=== PATIENT | female | born 1965 | race Caucasian/White ===

== ENCOUNTER 2024-04-05 10:17 | Observation (INO) ==
--- NOTE | 2024-03-07 16:05 | PAT Medication Instructions ---
Medication Instructions Date of Service March 07, 2024 Home Medications Medication Instructions Recorded Mitesh Clayton #1 ea 01/28/24 cholecalciferol (vitamin D3) 25 mcg (1,000 unit) tablet (Vitamin D3) 50 mcg PO QAM cyanocobalamin (vitamin B-12) 100 mcg/mL injection solution 100 mcg QAM duloxetine 20 mg capsule,delayed release 20 mg PO BID pediatric multivitamin (Flintstones Multivitamin chewable tablet) 2 tab PO QAM tramadol 50 mg tablet 50 mg PO HS PRN DO NOT take the morning of surgery cholecalciferol (vitamin D3) 25 mcg (1,000 unit) tablet (Vitamin D3) 50 mcg PO QAM cyanocobalamin (vitamin B-12) 100 mcg/mL injection solution 100 mcg QAM pediatric multivitamin (Flintstones Multivitamin chewable tablet) 2 tab PO QAM Take morning of surgery With a small sip of water, OTHERWISE NOTHING TO EAT OR DRINK AFTER MIDNIGHT: duloxetine 20 mg capsule,delayed release 20 mg PO BID Take evening before surgery duloxetine 20 mg capsule,delayed release 20 mg PO BID tramadol 50 mg tablet 50 mg PO HS PRN(if needed) Other Notes If you have any questions please call us at [phone] or [phone] or [phone] or [phone]
--- NOTE | 2024-03-15 08:58 | Anesthesiology Consultation ---
Date of Service March 15, 2024 Assessment & Plan (1) Encounter for pre-operative examination: - Infectious disease screening: Per assessment on 03/15/24- No known recent infectious disease contacts or current infectious disease symptoms. - Outpatient joint assessment: Pt currently scheduled for inpatient pathway. If surgeon requests review for outpatient joint pathway, patient is acceptable candidate for outpatient joint program from anesthesia standpoint pending surgeon's office assessment that patient is motivated, has good support and completes [facility] Program preop requirements. - Anesthesia hx: Severe post-op pain after tubal ligation done with neuraxial anesthesia Chart Review Chart Review: Acceptable Risk for Surgery and Patient seen in Pre Admission Testing Teaching & Discussion Pre-Anesthesia Teaching/Discussion Notes: Instructed NPO after midnight before surgery,except medications with 15 cc of water. Medication instructions provided according to the PAT guidelines. History Surgery Operation Date: 04/05/24 07:00 Proposed Procedures p Right Total Knee Arthroplasty - Aly Mcgrath MD Height/Weight Height: 5 ft 5 in Weight: 95.3 kg Allergies Allergy/AdvReac Type Severity Reaction Status Date / Time No Known Allergies Allergy Verified 03/02/24 15:06 Medications Home Medications Medication Instructions Recorded Confirmed Last Taken Wheeled Walker #1 ea 01/28/24 01/28/24 Unknown cholecalciferol (vitamin D3) 25 50 mcg PO QAM 03/02/24 03/02/24 Unknown mcg (1,000 unit) tablet (Vitamin D3) cyanocobalamin (vitamin B-12) 100 100 mcg QAM 03/02/24 03/02/24 Unknown mcg/mL injection solution duloxetine 20 mg capsule,delayed 20 mg PO BID 03/02/24 03/02/24 Unknown release pediatric multivitamin 2 tab PO QAM 03/02/24 03/02/24 Unknown (Flintstones Multivitamin chewable tablet) tramadol 50 mg tablet 50 mg PO HS PRN prn 03/02/24 03/02/24 Unknown Metamucil Gummy 1 gummy PO DAILY 03/15/24 Unknown Past Medical History Medical History Anxiety Chronic uveitis of left eye Follows with Dr Corbin/[facility] History of blood clots (2016) Superficial wrist after IV placement, no issues since Mother with Factor V, patient never tested Hypercholesteremia no meds Osteoarthritis Exercise / Class Metabolic Activity II 4-5 Yardwork/Stairs/Walk up hill (one FS: No CP, no SOB) Past Surgical History Surgical History History of cholecystectomy History of gastric surgery (2018) gastric sleeve History of hysterectomy History of shoulder surgery left x 5 Past Anesthesia History No Family Hx of Anesthesia Complications and Other (Severe post-op pain after tubal ligation done with neuraxial anesthesia) History of PONV No Hx of PONV and Hx of Motion Sickness (Occasional) Social History Smoking Status: Never smoker Do You Dip or Chew Tobacco: No Hx Alcohol Use: Yes alcohol intake frequency: holidays/special occasions only Hx Substance Use: No substance use type: does not use Review of Systems Occasional palpitations (improved with duloxetine addition). Patient denies chest pain, shortness of breath, dyspnea on exertion, fever, chills, cough, wheezing. Physical Exam Vital Signs BP 113/76 P 59 TEMP 97.6 SP02 97%RA RESP 16 Physical Full cervical extension range of motion. Full TMJ range of motion. TMD 3.5 finger breaths Mallampati Score I Dentition: left lower side missing, + crown (right lower side) Lungs: clear throughout to auscultation Cardiac: regular rate and rhythm, no murmurs noted Spine: normal Carotid arteries: negative bruit Extremities: non-pitting LE edema Lab Results Anesthesia Preop Results Results Anesthesia Widget: WBC 5.56 K/ul (4.8-10.8) 03/15/24 Hgb 13.5 g/dl (12.0-16.0) 03/15/24 Hct 40.0 % (37.0-47.0) 03/15/24 Plt 245 K/uL (130-400) 03/15/24 Na 139 mmol/L (136-145) 03/15/24 K 3.8 mmol/L (3.5-5.1) 03/15/24 Cl 104 mmol/L (98-107) 03/15/24 CO2 30 mmol/L (21-32) 03/15/24 BUN 16 mg/dl (6-23) 03/15/24 Creat 0.72 mg/dl (0.6-1.2) 03/15/24 Glucose Level 86 mg/dl (70-99(Fasting)) 03/15/24 PT 10.3 Seconds (9.0-12.0) 03/15/24 PTT 26 Seconds (21-31) 03/15/24 INR 0.9 (0.9-1.1) 03/15/24 Blood Type O Negative 03/15/24 Antibody Screen NEGATIVE 03/15/24 Testing Electrocardiogram Date: 03/15/24 SB at 56bpm. LAD. Low voltage QRS. Chest X-Ray Date: 03/15/24 FINDINGS: Heart size and pulmonary vasculature are normal. No pleural effusion or consolidation. IMPRESSION: No acute findings.
--- NOTE | 2024-03-31 09:45 | History & Physical Report ---
Date of Service March 31, 2024 Assessment & Plan (1) Bilateral primary osteoarthritis of knee: 59-year-old female with advanced bilateral knee arthritis right side greater than left. She has failed conservative treatment. She like to proceed with surgical management. Unfortunately she cannot take NSAIDs due to some GI issues. Plan: Sebastian take her to the operating room and do a right knee replacement for the Juliánn this procedure explained and she understands the informed consents obtained. We will do the right knee first and if this does well she will likely consider a left knee replacement in the future. Will use aspirin for DVT prophylaxis. She is planned to be discharged to home postop day 1 with home health. (2) History of high cholesterol: (3) Anxiety: History of Present Illness Chief Complaint: . Bilateral knee pain and discomfort right side greater than the left. Primary Care Provider: NO PCP . The patient is a 59-year-old female who now presents for surgical treatment of her knees. She has a fairly long history of gradual progressing increased bilateral knee pain discomfort. She been through extensive conservative tr eatment which is included injections which did become less successful over time. She used to take a lot of anti-inflammatories but developed some GI issues and cannot take them anymore. The right knee bothers him more than the left. The more she is up and onto more it hurts. She limps more as the day goes on. She is ready to have her knees fixed. Allergies Allergy/AdvReac Type Severity Reaction Status Date / Time No Known Allergies Allergy Verified 03/02/24 15:06 Home Medications Medication Instructions Recorded Confirmed Type Wheeled Walker #1 ea 01/28/24 01/28/24 Rx cholecalciferol (vitamin D3) 25 50 mcg PO QAM 03/02/24 03/02/24 History mcg (1,000 unit) tablet (Vitamin D3) cyanocobalamin (vitamin B-12) 100 100 mcg QAM 03/02/24 03/02/24 History mcg/mL injection solution duloxetine 20 mg capsule,delayed 20 mg PO BID 03/02/24 03/02/24 History release pediatric multivitamin 2 tab PO QAM 03/02/24 03/02/24 History (Flintstones Multivitamin chewable tablet) tramadol 50 mg tablet 50 mg PO HS PRN prn 03/02/24 03/02/24 History Metamucil Gummy 1 gummy PO DAILY 03/15/24 History Past Med/Surg History Problem List Encounter for pre-operative examination Bilateral primary osteoarthritis of knee History of high cholesterol Medical History History of blood clots (2016) Superficial wrist after IV placement, no issues since Mother with Factor V, patient never tested Osteoarthritis Chronic uveitis of left eye Follows with Dr Corbin/[facility] Anxiety Hypercholesteremia no meds Surgical History History of shoulder surgery left x 5 History of hysterectomy History of gastric surgery (2018) gastric sleeve History of cholecystectomy Social History Smoking Status: Never smoker Second Hand Exposure: No; Do You Dip or Chew Tobacco: No; Tobacco Cessation Education Requested by Patient: No Hx Alcohol Use: Yes Hx Substance Use: No Preferred Language: Kuwaiti Director New Product Required: No Beliefs That Will Affect Care: None Current Living Situation: Spouse Other Information That Helps Us Care for You: No Feels Safe at Home: Yes Safety Concerns: Feels Safe At This Time Assistive Devices: Glasses Review of Systems All systems reviewed & are unremarkable except as noted in HPI & below. Physical Exam . Physical examination reveals a pleasant middle-aged female but looks in pretty good health. Examination of both [id number] patient ambulates with a bit of waddling gait. She got varus alignment to both knees. Tender with medial joint line bilaterally. Range of motion of the right is 5-1 20 and the left is about 5-1 25. No particular pain with hip motion. No instability either knee. Constitutional WD/WN, vitals as above Respiratory normal respiratory effort, lungs clear to auscultation Cardiovascular RRR, no murmur, no edema Gastrointestinal (Abdomen) normal bowel sounds, soft, nontender, no hepatosplenomegaly Results & Data Results & Data Laboratory Results . Diagnostic Findings . X-rays of the knees were reviewed. Shows advanced bilateral knee DJD. She got near complete loss of the medial joint space. The right knee is a bit worse than the left. PG Care Time/CCT Total # of Minutes Spent Total Time Spent with Patient: Total time spent is greater than 50% in coordination of care (as documented) at patient's floor/unit and/or counseling patient: Coding Level of Care Code None Diagnoses Bilateral primary osteoarthritis of knee M17.0 History of high cholesterol Z86.39 Anxiety F41.9
[~2024-04-05 10:17] MED LIST: ROPIVACAINE 0.5% 5 MG/ML 30 ML VIAL ONE; TRANEXAMIC ACID 1,000 MG **IV Pre-op IV SCH
--- NOTE | 2024-04-05 10:24 | History & Physical Bridge Note ---
Date of Service April 05, 2024 History & Physical Bridge Note I have examined the patient, reviewed the History & Physical and in the interval since the performance of the History & Physical I have noted the following changes of clinical significance: no changes noted
[2024-04-05] MEDS: ACETAMINOPHEN 500 MG TAB PO SCH ×2 (10:47→15:27)
[2024-04-05] MEDS: FAMOTIDINE 20 MG TAB PO SCH (10:47)
[2024-04-05] MEDS: CeleBREX 200 MG CAP PO SCH (10:47)
[2024-04-05] MEDS: METOCLOPRAMIDE HCL 10 MG TABLET PO SCH (10:48)
[2024-04-05] MEDS: dexAMETHasone**PF** 10 MG/ML VIAL IV SCH (10:48)
[2024-04-05] MEDS: LR 60ML/HR IV SCH (10:48)
[2024-04-05] MEDS: LR 500ML BOLUS, THEN 15ML/HR IV SCH (10:49)
[2024-04-05] MEDS ORDERED: MIDAZOLAM HCL 1 MG/ML 2ML VIAL ONE (11:00)
[2024-04-05] MEDS ORDERED: fentaNYL citrate PF 100 MCG/2 ML VIAL ONE (11:01)
[2024-04-05] MEDS ORDERED: LIDOCAINE 2% 2 ML VIAL/AMP(20MG/ML) INFIL ONE (11:31)
[2024-04-05] MEDS ORDERED: ONDANSETRON INJ 2 MG/ML 2 ML VIAL ONE (11:32)
[2024-04-05] MEDS ORDERED: PROPOFOL IV EMULSION 10 MG/ML 20 ML VIAL IV ONE (11:32)
[2024-04-05] MEDS ORDERED: HYDROmorphone INJ 1 MG/ML SYRINGE IV PRN (11:44)
[2024-04-05] MEDS ORDERED: ATROPINE SULFATE 0.1 MG/ML 10ML SYR IV PRN (11:44)
[2024-04-05] MEDS ORDERED: ONDANSETRON INJ 2 MG/ML 2 ML VIAL IV PRN (11:44)
[2024-04-05] MEDS ORDERED: ePHEDrine sulfate 50 MG/ML AMP IV PRN (11:44)
[2024-04-05] MEDS ORDERED: fentaNYL citrate PF 100 MCG/2 ML VIAL IV PRN (11:44)
[2024-04-05] MEDS: ceFAZolin 2000MG 2,000 MG/15 ML SYR IV SCH ×2 (12:20→21:40)
[2024-04-05] MEDS ORDERED: PHENYLEPHRINE HCL 10 MG/ML VIAL ONE (12:37)
[2024-04-05] MEDS ORDERED: ePHEDrine sulfate 50 MG/ML AMP ONE (12:37)
[2024-04-05] MEDS: ROPIV 0.5% 246mg, Ketorolac 30mg, EPINEPHrine 0.5mg in NSS INFIL SCH (12:55)
[2024-04-05] MEDS: ORTHO JOINT ANESTHETIC ONE (12:56)
[2024-04-05] MEDS: TRANEXAMIC ACID 1,000 MG **IV Intra-op IV SCH (13:00)
--- NOTE | 2024-04-05 14:01 | Operative Report ---
PG Post Operative Report Pre & Post Diagnosis Operation Date: 04/05/24 12:30 Pre-Op Diagnosis: Right Knee Degenerative Joint Disease Post-Op Diagnosis: Right Knee Degenerative Joint Disease I identified the patient and participated in the time-out.: Yes Procedure Operation Date: 04/05/24 12:30 Actual Procedures p Right Total Knee Arthroplasty(Right) - Aly Mcgrath MD Surgeon Aly Mcgrath MD [employer] Advisor Srini Marinelli PA-C Estimated Blood Loss 50 Findings Consistent with Post-Op Diagnosis However findings revealed right knee DJD. Yet she had a pretty extensive grade 4 [id number] disease the entire medial compartment. She has slight varus deformity to her knee. Moderate soft tissue envelope. She did have a fairly low-lying patella. Specimens Right knee sent for pathology. Anesthesia Type Spinal MAC Complications none Disposition Accompanied Patient To Recovery: No Indications Patient is a 59-year-old female whose had a history of gradual progressive increasing bilateral knee pain discomfort right side cord bit worse than the left. Treatment extensive conservative treatment in the past which became less successful. It has really started him packed her quality life and she would like to proceed with total knee arthroplasty. Description of Procedure Operative implants consist of: 1 Biomet Vanguard size 65 right posterior stabilized femoral component. 2. Biomet size 67 tibial tray. 3. 12 mm posterior stabilized polyethylene insert. 4. 31 x 8 all poly patella. The patient was taken to the op room, identified, placed on the operating table in the supine position. All contact areas were appropriately padded. IV antibiotics fibra anesthesia team. A spinal anesthetic and adductor canal block had been Weida in the holding area. A Gardiner catheter was placed in sterile fashion. Right Tetrick was then placed. The right lower extremity was then prepped and draped in usual sterile fashion. The right leg was elevated and exsanguinated with use of an Esmarch and a turn was placed at 300 mmHg. An anterior approach of the right knee was then performed to longitudinal incision centered over the patella. Sharp dissection was Through subcutaneous tissue down the extensor mechanism. A medial parapatellar arthrotomy incision was made. Some subperiosteal dissection was carried out medially. The fat pad was dissected from Neath patella tendon. Lateral patellofemoral ligament was released. Patella was subluxated laterally and the knee was flexed. The osteophytes taken off distal femur. The ACL and PCL were then released from distal femur and the tibia subluxated anteriorly. The external treatment LYMErix then placed on the anterior face of the tibia and adjusted 14 mm medially. The proximal tibial cut was made removed 2 mm of bone from the most efficient aspect medial tibial plateau. The tibia was then sized to a size 67. Attention drawn the femur. The distal femur termed a sharp drop with intramedullary canal was suction. A right 5 degree valgus cutting guide was placed. The distal femoral cutting block was pinned in place. This femoral cut was made to take an additional 3 mm of bone off distal femur. The femur was then sized to a size 65. The AP cutting block was pinned parallel to the epicondylar axis which was 3 degrees of external rotation. The anterior cut, anterior chamfer, posterior cut, posterior chamfer cuts were made. The box cutting guide was placed and just slight lateral and the box cut was made. The knee was flexed. The remnants of the medial and lateral menisci were excised. The osteophytes taken off the posterior aspect the femur. Trial femoral component was placed. The tibial tray was pinned Josy external rotation and the drill and stem punch were used to create defect in proximal tibia for the tibial tray. The knee was then trialed and the 12 mm insert fit most appropriately. Attention drawn the patella. The patella was cleaned of all soft tissue. Patella thickness measured 21 mm in thickness was cut down to 13. Was sized to a size 31 patella. The lug holes were drilled for 31 patella. The lateral osteophytes removed. Patella button was placed. Knee was taken through range of motion and the patella tracked nicely with no thumbs test. Attention then drawn toward placement permanent components. All trial components were removed. Bone plug was placed into this femur limit blood loss. A double batch Palacos G cement was mixed. A Biomet Vanguard size 65 right posterior stabilized femoral component, size 67 tibial tray, 12 mm po sterior stabilized polyethylene insert, and a 31 x 8 all poly patella then cemented in place. The knee was brought out in full extension till cement hardened. Final cement check was then performed. The patient did receive 1 g tranexamic acid. We injected locally with 100 cc of Ortho mix. The tourniquet was then let down for final tourniquet time of 49 minutes. Hemostasis assured use electrocautery. The wounds once again irrigated. The extensor Metros then closed with combination 1 PDS suture #1 Vicryl suture in a [id number] fashion. Extensor Meclomen checked found to be intact with subcutaneous tissue then closed with 2 Dexon suture in a buried interrupted fashion skin was closed skin morgan. Leg was then cleaned and dried and a sterile dressing was Xeroform, 4 fours, sterile cast padding, Hipolito bandage were applied. Patient then transferred to the recovery room in stable condition. Patient tolerated procedure well and there were no complications. Srini Marinelli, my physician marketing operations assistant, was present for the entire procedure. His assistance was essential and required for appropriate patient positioning, prepping and draping, surgical exposure, performing the technical details of the operation, placement the implants, closure of the wound, and placement of the sterile bandage. I attest to the content of the Intraoperative Record and any orders documented therein. Any exceptions are noted below.
--- NOTE | 2024-04-05 14:27 | Anesthesiology Progress Note ---
Date of Service April 05, 2024 Anesthesia Post Procedure Vital Signs Vital Signs: Temp Pulse Pulse Resp BP Pulse Ox O2 Del Method 04/05/24 14:20 36.9 C 75 20 124/63 94 Room Air 04/05/24 14:10 71 22 123/65 96 Oxymask 04/05/24 14:00 73 18 129/62 97 Oxymask 04/05/24 13:51 36.8 C 83 19 126/68 94 Oxymask 04/05/24 10:38 36.7 C 70 18 148/84 H 97 Room Air O2 Flow Rate 04/05/24 14:20 04/05/24 14:10 2 04/05/24 14:00 4 04/05/24 13:51 6 04/05/24 10:38 Pain Intensity Right Knee: Pain Intensity: 1 Transfer of Care Handoff Completed per policy Notes Mental Status: alert / awake / arousable and participated in evaluation Patient Amnestic to Procedure: Yes Nausea / Vomiting: adequately controlled Pain: adequately controlled Airway Patency, RR, SpO2: stable & adequate BP & HR: stable & adequate Hydration State: stable & adequate Anesthetic Complications: no major complications apparent and Pt Satisfied with anesthetic care
--- NOTE | 2024-04-05 14:31 | XRay Report ---
XR knee RT 1 or 2V routine HISTORY: 59 years-old Female Surgical Post Op right knee arthroplasty COMPARISON: Radiographs 10/05/2023 TECHNIQUE: 2 views of the right knee FINDINGS: Total joint arthroplasty with patellar resurfacing. Anterior midline skin morgan with expected posto perative soft tissue swelling and deep tissue air. No acute fracture. IMPRESSION: Satisfactory alignment of the total joint arthroplasty. ACT 112: Negative or not required by law. The above report was generated using voice recognition software. It may contain grammatical, syntax o r spelling errors. Electronically signed by: Momo Castro M.D. 04/05/2024 2:30 PM
[2024-04-05] MEDS ORDERED: METOCLOPRAMIDE HCL INJ 5 MG/ML 2 ML VIAL IV PRN (14:49)
[2024-04-05] MEDS ORDERED: ALUMINUM/MAGNESIUM SUSP 30 ML UDC PO PRN (14:49)
[2024-04-05] MEDS ORDERED: bisacodyL 10 MG SUPP PR PRN (14:49)
[2024-04-05] MEDS ORDERED: MAGNESIUM HYDROXIDE SUSP 30 ML UDC PO PRN (14:49)
[2024-04-05] MEDS ORDERED: NALOXONE HCL 0.4 MG/1 ML VIAL/CARP IV PRN (14:49)
[2024-04-05] MEDS ORDERED: HYDROmorphone INJ 0.5 MG/0.5 ML SYR IV PRN (14:49)
[2024-04-05] MEDS: KETOROLAC 30 MG/ML VIAL IV SCH (15:27)
[2024-04-05] MEDS: ASCORBIC ACID 500 MG TAB PO SCH (16:12)
[2024-04-05] MEDS ORDERED: SENNA 8.6 MG TAB PO SCH (21:00)
[2024-04-05] MEDS: TRANEXAMIC ACID / 0.7% NACL 1,000 MG/100 ML BAG IV SCH (21:40)
[2024-04-05] MEDS: SENNA 8.6 MG TAB PO SCH (21:41)
[2024-04-05] MEDS: DOCUSATE SODIUM 100 MG CAP PO SCH (21:41)
[2024-04-05] MEDS: DULoxetine HCL 20 MG CAP PO SCH (21:43)
[2024-04-06] MEDS: oxyCODONE HCL IR 5 MG TAB (IMMEDIATE RELEASE) PO PRN (07:59)
[2024-04-06] MEDS: CHOLECALCIFEROL 25 MCG (1000 UNITS) TAB PO SCH (08:01)
[2024-04-06] MEDS: PSYLLIUM or GUAR GUM FIBER 4GM PACKET PO SCH (08:02)
[2024-04-06] MEDS: MULTIVITAMIN CHEWABLE TAB PO SCH (08:02)
[2024-04-06] MEDS: dexAMETHasone 10 MG in SYRINGE 0 ML IV SCH (08:02)
[2024-04-06 08:04] LABS: Hematocrit (blood only) 38.1 % (37.0-47.0); Hemoglobin 12.9 g/dl (12.0-16.0); Mean Corpuscular Hemoglobin 29.9 pg (25.0-34.0); Mean Corpuscular Hgb Conc 33.9 g/dL (32.0-36.0); Mean Corpuscular Volume 88.4 fL (80.0-100.0); Mean Platelet Volume 9.6 fL (9.4-12.4); Platelet Count 224 K/uL (130-400); RDW Coefficient of Variation 12.9 % (11.5-14.5); Red Blood Count 4.31 M/uL (4.20-5.40); White Blood Count 9.87 K/ul (4.8-10.8)
[2024-04-06 08:24] LABS: BUN Creatinine Ratio 14.6 (10-20); Calcium 8.5 mg/dl (8.6-10.3); Creatinine Clr Calc Pharmacy 85.8 ml/min; Potassium 3.7 mmol/L (3.5-5.1)
[2024-04-06] MEDS: ONDANSETRON INJ 2 MG/ML 2 ML VIAL IV PRN (09:00)
[2024-04-06] MEDS ORDERED: NON-FORMULARY MEDICATION (Amino Acids Powder) PO SCH (09:00)
[2024-04-06] MEDS ORDERED: MULTIVITAMIN TAB PO SCH (09:00)
--- NOTE | 2024-04-06 09:57 | Orthopedic Progress Note ---
Date of Service April 06, 2024 Assessment & Plan (1) Status post right knee replacement: Assessment: Status post right total knee arthroplasty. Plan: Overall, she is doing quite well today with good pain control the right knee. She will work with physical therapy later this morning to work on ambulation and range of motion exercises. She is on Xarelto for DVT prophylaxis. She can be discharged home later this morning pending formal physical therapy evaluation recommendations. Prescriptions were sent to her pharmacy prior to surgery. She has no questions with her prescriptions. She will follow-up with Dr. Mcgrath in 2 weeks for postoperative management or sooner if needed. She verbalized understanding and agrees with this plan. Subjective . Renetta was seen this morning resting comfortably in no apparent distress. She notes that her pain is well-controlled to the right knee. She has been up and out of bed without any significant issues. She denies working with physical therapy this morning yet. She denies any concerns with her surgical incision site. She denies any active bleeding, discharge, or signs of infection. She denies any other concerns today. Review of Systems All systems reviewed & are unremarkable except as noted in HPI & below. Physical Exam . On physical examination of the right knee, the dressings are clean, dry. No tenderness to palpation. Leg is out full extension. Limited range of motion secondary to postoperative stiffness and soreness. Calf soft nontender to palpation. Negative Homans' sign. Intact plantarflexion and dorsiflexion to the right ankle. +2 DP and PT pulse. Less than 2-second capillary refill. Normal sensation. Neurovascular intact. Results & Data Results & Data Laboratory Results . Diagnostic Findings . Knee X-Ray 04/05/24 13:51 XR knee RT 1 or 2V routine HISTORY: 59 years-old Female Surgical Post Op right knee arthroplasty COMPARISON: Radiographs 10/05/2023 TECHNIQUE: 2 views of the right knee FINDINGS: Total joint arthroplasty with patellar resurfacing. Anterior midline skin morgan with expected postoperative soft tissue swelling and deep tissue air. No acute fracture. IMPRESSION: Satisfactory alignment of the total joint arthroplasty. ACT 112: Negative or not required by law. The above report was generated using voice recognition software. It may contain grammatical, syntax or spelling errors. Electronically signed by: Momo Castro M.D. 04/05/2024 2:30 PM PG Care Time/CCT Total # of Minutes Spent Total Time Spent with Patient: Total time spent is greater than 50% in coordination of care (as documented) at patient's floor/unit and/or counseling patient: Coding Level of Care Code 23401 Post Operative Follow-Up Diagnoses Status post right knee replacement Z96.651
--- NOTE | 2024-04-06 09:58 | Discharge Summary ---
Date of Service April 06, 2024 Admission HPI (Per Admitting) . The patient is a 59-year-old female who now presents for surgical treatment of her knees. She has a fairly long history of gradual progressing increased bilateral knee pain discomfort. She been through extensive conservative treatment which is included injections which did become less successful over time. She used to take a lot of anti-inflammatories but developed some GI issues and cannot take them anymore. The right knee bothers him more than the left. The more she is up and onto more it hurts. She limps more as the day goes on. She is ready to have her knees fixed. Admission Exam (Per Admitting) . Physical examination reveals a pleasant middle-aged female but looks in pretty good health. Examination of both lzfhk-whzy-tqu patient ambulates with a bit of waddling gait. She got varus alignment to both knees. Tender with medial joint line bilaterally. Range of motion of the right is 5-1 20 and the left is about 5-1 25. No particular pain with hip motion. No instability either knee. Principal Diagnosis Same as "Discharge Diagnosis" noted below under Discharge Instructions. Discharge Exam . On physical examination of the right knee, the dressings are clean, dry. No tenderness to palpation. Leg is out full extension. Limited range of motion secondary to postoperative stiffness and soreness. Calf soft nontender to palpation. Negative Homans' sign. Intact plantarflexion and dorsiflexion to the right ankle. +2 DP and PT pulse. Less than 2-second capillary refill. Normal sensation. Neurovascular intact. Discharge Data Procedures Performed Operation Date: 04/05/24 12:30 Actual Procedures p Right Total Knee Arthroplasty(Right) - Aly Mcgrath MD Ordered Studies 04/05/24 05:00 US - OR guided needle placemen Routine Hospital Course (1) Status post right knee replacement: On April 05, 2024 Renetta arrived at [facility] and underwent a right total knee arthroplasty performed by Dr. Mcgrath with no complications. She had a spinal anesthetic. Postoperatively, she was started on Xarelto for DVT prophylaxis and transferred to the general orthopedic floor in stable condition. Her hospital course was uneventful. On postoperative day #1, her vital signs were stable and her pain was well-controlled. She participated well physical therapy working on ambulation and range of motion exercises. She was then discharged home in stable condition. She will follow-up with orthopedics in 2 weeks for continued postoperative management or sooner if needed. PG Care Time/CCT Total # of Minutes Spent Total Time Spent with Patient: Total time spent is greater than 50% in coordination of care (as documented) at patient's floor/unit and/or counseling patient: Discharge Plan Discharge Items Patient Disposition: Home - Home Health Services Reason For Visit: Osteoarthritis Knee Right Discharge Diagnosis: Right Knee Replacement Activity: Per Instructions section Weightbearing: Full weightbearing Non-emergency contact: Surgeon Call non-emergency contact if: you have any medication questions Follow-up/Referrals: PCP,NO [Physician] - Diet: Regular Addtl Attending Provider Instructions: ACTIVITY RECOMMENDATIONS: Diet: * You may resume previous diet. Physical Therapy: * You will go to physical therapy three times each week for four to six weeks after your surgery in order to regain your knee range of motion and to retrain your knee to work properly. * It is just as important to make sure you are getting your knee perfectly straight as it is to regain your knee bend. * Taking a pain pill an hour before therapy can help you have a more productive and comfortable therapy session. Home Exercise: * You were shown a series of exercises (heel props, heel slides, etc.) in the hospital. Do these exercises three to four times each day including the exercises you were shown in physical therapy. Walking: * Get up and walk several times each day. For the first four weeks, try not to stand or walk for more than one hour at a time. If you do stand or walk for more than one hour, you will not hurt anything, but your knee and leg will likely swell. * As you feel comfortable, you may change from the walker or crutches to a cane and then to independent walking. MEDICATIONS: New Medicine: * You will likely be taking one or more of these medications: 1. Oxycodone - A quick and shorter-acting pain medication. Take one to two tablets every six hours to lessen your pain. 2. Xarelto - Thins your blood to lessen the chance of forming a blood clot. * The most common side effects of pain medicine and iron are nausea and constipation. If nausea or constipation is too much of a problem or if you have any questions about your new medicines or doses, call [facility] at . We will try to help you manage these issues. "VERY IMPORTANT TO READ AND REVIEW" Pain: * The immediate post-operative period after knee replacement surgery is often quite painful. * You are given a prescription for pain medicine. You should take it, as directed, when you need it, especially before physical therapy and before going to bed. Pain that interferes with sleep is very common and can last several months. * You will likely need pain medicine for the first four to six weeks. It will not stop all of the pain. The pain will lessen and as you feel better, you may change to milder pain medicine such as Tylenol. * The most common side effects of pain medicine are nausea and constipation, so don't take more than you need. SPECIAL CARE INSTRUCTIONS: TEDs/Elastic Stockings: * The white elastic stockings help limit swelling and prevent blood clots from forming in your legs. The more you wear them, the more they work. * Wear them for six weeks after knee replacement surgery and four weeks after partial knee replacement. Incision Site Care: * Remove dressing postoperative day 2 and then shower. Keep direct shower pressure off the incision site. * After showering, cover morgan with dry gauze and change daily or more frequently if the dressing is getting saturated with drainage. * Use the YOLANDA stockings to hold dressing in place. DO NOT apply tape on the skin. * May completely stop using bandage if wound is dry and no drainage * Morgan are removed between 2 and 3 weeks post-op. If your follow-up appointment is made before 2 weeks, please have your appointment re- scheduled. It is too early to remove the morgan. Prevention of Infection: * Take antibiotics one hour before any dental cleaning, dental work, urological procedure, gastrointestinal procedure or any invasive surgery in order to prevent your new joint from getting infected. * You may get the antibiotics from the doctor performing the procedure or you may call our office at [phone] before and we will call in a p rescription to the pharmacy of your choice. Things to Watch For: * Drainage from the incision site that occurs more than one week after your surgery. * Severely increased knee/leg pain or swelling. * Increased redness at the incision site. * Fever above 102 degrees Fahrenheit. * Unusual chest pain or shortness of breath. * Unusual pain or burning with urination. Call [facility] at [phone] with any of the above problems or if you have any questions about your medicines or recovery. FOLLOW UP VISIT: Make an appointment to see your doctor for approximately two weeks after surgery for a progress check and staple removal by calling the office at [phone]. Pending Studies at Discharge: No Stand-Alone Forms: My [facility], Smoking Cessation Medications and DC Order Prescriptions: New Xarelto 10 mg Tablet 10 mg PO DAILY 30 Days Qty: 30 0RF Rx Instructions: Take daily to prevent blood clots. Continued oxycodone 5 mg tablet 5 - 10 mg PO Q6 PRN (Reason: pain) Qty: 40 0RF Rx Instructions: Take as needed for pain ondansetron 4 mg tablet,disintegrating 4 mg PO Q8 PRN (Reason: nausea) Qty: 20 1RF Rx Instructions: Take as needed for nausea ketorolac 10 mg tablet 10 mg PO Q6 5 Days Qty: 20 0RF Rx Instructions: Take 4 times per day with food for 5 days to lessen pain and swelling. sennosides [Senokot] 8.6 mg tablet 8.6 mg PO BID 14 Days Qty: 28 0RF Rx Instructions: Take two times a day to prevent/treat constipation acetaminophen [Tylenol Extra Strength] 500 mg tablet 1,000 mg PO TID 30 Days Qty: 180 0RF Rx Instructions: Take 3 times per day to lessen pain. aspirin [Byron Low Dose Aspirin] 81 mg tablet,delayed release (DR/EC) 81 mg PO BID 45 Days Qty: 90 0RF Rx Instructions: Take to prevent blood clots. cefadroxil 500 mg capsule 500 mg PO BID 7 Days Qty: 14 0RF Rx Instructions: Take 1 cap twice a day to prevent infection (DME) Wheeled Walker Misc See Rx Instructions .MEDSUPPLY Qty: 1 0RF Rx Instructions: As directed Flintstones Multivitamin Tablet,Chewable 2 tab PO QAM Vitamin B-12 100 mcg/mL Solution 100 mcg QAM tramadol 50 mg Tablet 50 mg PO HS PRN (Reason: prn) duloxetine 20 mg Capsule,Delayed Release(Dr/Ec) 20 mg PO BID cholecalciferol (vitamin D3) [Vitamin D3] 25 mcg (1,000 unit) Tablet 50 mcg PO QAM Metamucil Gummy 1 gummy PO DAILY Amino Acid Powder 1 ea PO DAILY Rx Instructions: 1 scoop with water daily Admission Data Admit Date/Time: 04/05/24 13:51 Attending Provider: Aly Mcgrath Admit Provider: Aly Mcgrath Primary Care Provider: Heraclio Verdugo Other Providers: [facility]
[2024-04-06] MEDS ORDERED: RIVAROXABAN 10 MG TABLET PO SCH (15:00)
== END 2024-04-06 11:03 | disposition home health service (06) ==
LOC: 3N 10:17 → ASU 10:17

== ENCOUNTER 2024-09-27 06:38 | Observation (INO) ==
--- NOTE | 2024-09-01 11:19 | PAT Medication Instructions ---
Medication Instructions Date of Service September 01, 2024 Home Medications Medication Instructions Recorded Mitesh Clayton #1 ea 01/28/24 cholecalciferol (vitamin D3) 25 mcg (1,000 unit) tablet (Vitamin D3) 50 mcg PO QAM cyanocobalamin (vitamin B-12) 100 mcg/mL injection solution 100 mcg QAM pediatric multivitamin (Flintstones Multivitamin chewable tablet) 2 tab PO QAM tramadol 50 mg tablet 50 mg PO HS PRN Pain Metamucil Gummy 1 gummy PO DAILY Medical Marijuana 1 dose PO HS PRN sleep DO NOT take the morning of surgery cholecalciferol (vitamin D3) 25 mcg (1,000 unit) tablet (Vitamin D3) 50 mcg PO QAM cyanocobalamin (vitamin B-12) 100 mcg/mL injection solution 100 mcg QAM pediatric multivitamin (Flintstones Multivitamin chewable tablet) 2 tab PO QAM Metamucil Gummy 1 gummy PO DAILY Take morning of surgery tramadol 50 mg tablet 50 mg PO HS PRN Pain (if needed) Medical Marijuana 1 dose PO HS PRN sleep (if needed) MORNING OF SURGERY: NOTHING TO EAT OR DRINK AFTER MIDNIGHT Other Notes If you have any questions please call us at [phone] or [phone] or [phone] or [phone]
--- NOTE | 2024-09-05 09:14 | Anesthesiology Consultation ---
Date of Service September 05, 2024 Assessment & Plan (1) Encounter for pre-operative examination: - Severe post-op pain after tubal ligation done with neuraxial anesthesia, patient denies any issues/concerns with neuraxial anesthesia for right TKA 03/2024. - s/p 04/05/24 right TKA 1 attempt (level not specified) + PNB. - Outpatient joint assessment: Patient is currently scheduled for inpatient pathway. If re-evaluated and patient/surgeon requests outpatient pathway, patient is acceptable candidate for outpatient joint program from anesthesia standpoint pending surgeon's office assessment of pt motivation/support/completion of same day joint program preop requirements. Chart Review Chart Review: Acceptable Risk for Surgery and Patient seen in Pre Admission Testing Teaching & Discussion Pre-Anesthesia Teaching/Discussion Notes: Instructed NPO after midnight before surgery, except medications with 15 cc of water. Medication instructions provided according to the PAT guidelines. History Surgery Operation Date: 09/27/24 10:40 Proposed Procedures p Left Total Knee Arthroplasty - Aly Mcgrath MD Height/Weight Height: 5 ft 5 in Weight: 94.8 kg Allergies Allergy/AdvReac Type Severity Reaction Status Date / Time No Known Allergies Allergy Verified 09/01/24 09:20 Medications Home Medications Medication Instructions Recorded Confirmed Last Taken Wheeled Walker #1 ea 01/28/24 09/01/24 Unknown cholecalciferol (vitamin D3) 25 50 mcg PO QAM 03/02/24 09/01/24 04/04/24 07:00 mcg (1,000 unit) tablet (Vitamin D3) cyanocobalamin (vitamin B-12) 100 100 mcg QAM 03/02/24 09/01/24 04/04/24 07:00 mcg/mL injection solution pediatric multivitamin 2 tab PO QAM 03/02/24 09/01/24 04/04/24 07:00 (Flintstones Multivitamin chewable tablet) tramadol 50 mg tablet 50 mg PO HS PRN Pain 03/02/24 09/01/24 03/29/24 Metamucil Gummy 1 gummy PO DAILY 03/15/24 09/01/24 04/04/24 07:00 Medical Marijuana 1 dose PO HS PRN sleep 09/01/24 09/01/24 Unknown Past Medical History Medical History Anxiety Chronic uveitis of left eye Follows with Dr Corbin/[facility] History of blood clots (2015) Superficial left wrist after IV placement, no issues since. Mother with Factor V, patient never tested Hypercholesteremia no meds Osteoarthritis Varicose veins of both lower extremities and pain; meeting w/ [facility] on 09/01 Venous insufficiency Patient denies h/o stroke, seizures, heart attack, heart failure, DM, HTN, or blood transfusions. Exercise / Class Metabolic Activity II 4-5 Yardwork/Stairs/Walk up hill (denies chest discomfort or shortness of breath with one flight of stairs) Past Family History Family History Mother Factor 5 Leiden mutation, heterozygous Past Surgical History Surgical History (Updated 09/05/24 @ 10:29 by Dianelys Lambert PA-C) History of cholecystectomy History of gastric surgery (2018) gastric sleeve History of hysterectomy History of shoulder surgery left x 5 History of total right knee replacement (03/2024) History of tubal ligation after vaginal delivery, plan was for tubal ligation with epidural/patient awake-fully aware/in pain so was converted to general anesthesia. Severe post-op pain after tubal ligation done with neuraxial anesthesia Hx of cardiac catheterization (2014) hx of CP and sob >> no stents placed, [facility] [place], no cardio currently has seen Dr Saxena in the past 10 +yrs ago Past Anesthesia History No Family Hx of Anesthesia Complications and Other (Severe post-op pain after tubal ligation done with neuraxial anesthesia) History of PONV No Hx of PONV and Hx of Motion Sickness Social History Smoking Status: Never smoker Do You Dip or Chew Tobacco: No Hx Alcohol Use: Yes alcohol intake frequency: a few times a month Hx Substance Use: Yes (medical marijuana- advised) substance use type: marijuana Review of Systems Snoring, denies witnessed apneas. Nonproductive cough on-off for several weeks which patient attributes to seasonal allergies. Patient denies chest pain, shortness of breath, dyspnea on exertion, reflux, fever, chills, wheezing, or palpitations. Physical Exam Vital Signs Vitals BP 103/68 P 65 TEMP 97.9 SP02 98% on RA RESP 18 Physical Patient resting comfortably in chair in no acute distress, alert and oriented, responding appropriately throughout visit Full cervical extension range of motion without pain TMD 3.5 finger breadths Mallampati Score 2 Dentition: intact, denies chipped or loose teeth, caps/crowns, implants or bridges Lungs: normal respiratory effort. Good air movement, clear throughout to auscultation, no adventitious breath sounds Cardiac: regular rate and rhythm, no murmurs noted Carotid arteries: negative bruit bilat Lab Results Anesthesia Preop Results Results Anesthesia Widget: WBC 5.21 K/ul (4.8-10.8) 09/05/24 Hgb 14.0 g/dl (12.0-16.0) 09/05/24 Hct 41.7 % (37.0-47.0) 09/05/24 Plt 237 K/uL (130-400) 09/05/24 Na 141 mmol/L (136-145) 09/05/24 K 3.7 mmol/L (3.5-5.1) 09/05/24 Cl 107 mmol/L (98-107) 09/05/24 CO2 27 mmol/L (21-32) 09/05/24 BUN 12 mg/dl (6-23) 09/05/24 Creat 0.75 mg/dl (0.6-1.2) 09/05/24 Glucose Level 125 mg/dl (70-99(Fasting)) H 09/05/24 PT 10.4 Seconds (9.0-12.0) 09/05/24 PTT 27 Seconds (21-31) 09/05/24 INR 1.0 (0.9-1.1) 09/05/24 Blood Type O Negative 09/05/24 Antibody Screen NEGATIVE 09/05/24 Testing Electrocardiogram Date: 03/15/24 Sinus bradycardia, rate 56 bpm Left axis deviation Low voltage QRS Chest X-Ray Date: 03/15/24 No acute findings.
[~2024-09-27 06:38] MED LIST changes: +BUPIVACAINE 0.5 % 5 MG/1 ML PF 10ML VIAL ONE; -TRANEXAMIC ACID 1,000 MG **IV Pre-op IV SCH
--- NOTE | 2024-09-27 06:43 | History & Physical Bridge Note ---
Date of Service September 27, 2024 History & Physical Bridge Note I have examined the patient, reviewed the History & Physical and in the interval since the performance of the History & Physical I have noted the following changes of clinical significance: no changes noted
[2024-09-27] MEDS: dexAMETHasone**PF** 10 MG/ML VIAL IV SCH (07:03)
[2024-09-27] MEDS: METOCLOPRAMIDE HCL 10 MG TABLET PO SCH (07:03)
[2024-09-27] MEDS: ACETAMINOPHEN 500 MG TAB PO SCH ×2 (07:03→13:36)
[2024-09-27] MEDS: FAMOTIDINE 20 MG TAB PO SCH (07:04)
[2024-09-27] MEDS: CeleBREX 200 MG CAP PO SCH (07:04)
[2024-09-27] MEDS: LR 60ML/HR IV SCH (07:04)
[2024-09-27] MEDS ORDERED: MIDAZOLAM HCL 1 MG/ML 2ML VIAL ONE ×2 (07:19)
[2024-09-27] MEDS: LR 500ML BOLUS, THEN 15ML/HR IV SCH (07:20)
[2024-09-27] MEDS ORDERED: PROPOFOL IV EMULSION 10 MG/ML 20 ML VIAL IV ONE ×4 (07:21→11:08)
[2024-09-27] MEDS ORDERED: GLYCOPYRROLATE 0.2 MG/ML VIAL ONE (09:45)
[2024-09-27] MEDS ORDERED: ONDANSETRON INJ 2 MG/ML 2 ML VIAL ONE (09:54)
[2024-09-27] MEDS: ROPIV 0.5% 246mg, Ketorolac 30mg, EPINEPHrine 0.5mg in NSS INFIL SCH (10:07)
[2024-09-27] MEDS: ORTHO JOINT ANESTHETIC ONE (10:33)
[2024-09-27] MEDS ORDERED: PHENYLEPHRINE HCL 10 MG/ML VIAL ONE (10:56)
[2024-09-27] MEDS ORDERED: ATROPINE SULFATE 0.1 MG/ML 10ML SYR IV PRN (11:30)
[2024-09-27] MEDS ORDERED: HYDROmorphone INJ 0.5 MG/0.5 ML SYR IV PRN (11:32)
[2024-09-27] MEDS ORDERED: METOCLOPRAMIDE HCL INJ 5 MG/ML 2 ML VIAL IV PRN (11:32)
[2024-09-27] MEDS ORDERED: ONDANSETRON INJ 2 MG/ML 2 ML VIAL IV PRN (11:32)
[2024-09-27] MEDS ORDERED: MAGNESIUM HYDROXIDE SUSP 30 ML UDC PO PRN (11:32)
[2024-09-27] MEDS ORDERED: diphenhydrAMINE Capsule 25 MG CAP PO PRN (11:32)
[2024-09-27] MEDS ORDERED: NALOXONE HCL 0.4 MG/1 ML VIAL/CARP IV PRN (11:32)
--- NOTE | 2024-09-27 11:32 | Operative Report ---
PG Post Operative Report Pre & Post Diagnosis Operation Date: 09/27/24 08:50 Pre-Op Diagnosis: Left Knee Osteoarthritis Post-Op Diagnosis: Left Knee Osteoarthritis I identified the patient and participated in the time-out.: Yes Procedure Operation Date: 09/27/24 08:50 Actual Procedures p Left Total Knee Arthroplasty(Left) - Aly Mcgrath MD Surgeon Aly Mcgrath MD Retort Load Expediter Daquan Connell PA-C Estimated Blood Loss 50 Findings Consistent with Post-Op Diagnosis Operative findings revealed the grade 4 lswt-gn-[id number] disease of the medial and patellofemoral compartments. She did not have much in the way of bony eburnation but full-thickness cartilage loss. Moderate-sized joint effusion. Specimens Left knee sent for pathology. Anesthesia Type Spinal MAC Complications none Disposition Accompanied Patient To Recovery: No Indications Patient is a 59-year-old female who sadly has several year history of increasing bilateral knee pain discomfort describes gotten worse over time. She failed conservative measures. She had a right knee replaced about 6 months ago and recovered nicely. She continued to be bothered by left knee pain. She elected proceed with left total knee arthroplasty. Description of Procedure Operative implants consist of: 1 Biomet Vanguard size 65 left posterior stabilized femoral component. 2. Biomet size 67 tibial tray. 3. 10 mm posterior stabilized polyethylene insert. 4. 28 x 8 all poly patella. The patient was taken the op room, identified, placed on the operating table in the supine position. All conductors were appropriately padded. IV antibiotics provided by anesthesia team. Spinal anesthetic and adductor canal block had been provided in the holding area. A Gardiner catheter was placed in sterile fashion. A left phytate was then placed in the left lower extremity was then prepped and draped in usual sterile fashion. The left leg was elevated and exsanguinated with use of an Esmarch and a turn was placed at 300 mmHg. An anterior approach to the left knee was then performed to longitudinal incision centered over the patella. Sharp dissection was Through subcutaneous tissue down the extensor mechanism. A medial parapatellar arthrotomy incision was made. Some subperiosteal dissection was carried out medially. The fat pad was dissected from the patella tendon. Patellofemoral ligament was released. Patella subluxated laterally. The knee was flexed. The osteophytes taken off the distal femur. The ACL PCL released from the distal femur and the tibia subluxated anteriorly. The external tibial LYMErix then placed on the anterior face of the tibia and adjusted 14 mm medially. The proximal tibial cut was made removed without a millimeter or 2 of bone from the medial side. Tibia sized to a size 67. Attention drawn the femur. The distal femur examined with a sharp drill. Intramedullary canal was suction. A left 5 degree valgus cutting guide was placed. The distal femoral cutting block was pinned in place. This femoral cut was made to take an additional 3 mm of bone off distal femur. The femur was then sized to a size 65. The AP cutting block was pinned parallel to the epicondylar axis which was 4 degrees of external rotation. The anterior cut, anterior chamfer, posterior cut, posterior chamfer cuts were made. The box cutting guide was placed and just slight lateral and the box cut was made. The knee was flexed. The remnants of the medial and lateral menisci were excised. The osteophytes taken off the posterior aspect of femur. Trial femoral component was placed. The tibial tray was pinned in Josy external rotation and the drill and stem points were used to create defect in the proximal tibia for the tibial tray. Knee was then trialed and the 10 mm insert fit most appropriately. Attention drawn the patella. The patella was cleaned of all soft tissue. Patella thickness measured 22 mm in thickness was cut down to 13. Was sized to a size 28 patella. The lug holes were drilled for the 28 patella. The lateral osteophytes removed. Patella button was placed. Knee was taken through range of motion and the patella tracked nicely with no thumbs test. Attention then drawn to place the permanent components. NuPrep all trial components were removed. A bone plug was placed into the distal femur limit blood loss. A double batch of Palacos G cement was mixed. Biomet Vanguard size 65 left posterior stabilized femoral component, size 67 tibial tray, a 10 mm posterior box polyethylene insert, and a 28 x 8 all poly patella then cemented in place. The knee was brought out into full extension till cement hardened. Final symmetric was then performed. Pericapsular tissues were injected with total 100 cc of Ortho mix. Patient did receive 1 g of tranexamic acid. The tourniquet was then let down for final tourniquet time 66 minutes. Hemostasis assured use electrocautery. Extensor Meclomen then closed with combination 1 PDS suture and 1 Vicryl suture in a [id number] fashion. Extensor Meclomen checked found to be intact. Subcutaneous tissue then closed with 2 Dexon suture in a buried interrupted fashion skin was closed skin morgan. Leg was then cleaned and dried and a sterile dressing with Xeroform, 4 fours, sterile cast padding, Hipolito bandage were applied. The patient was then transferred to the recovery room in stable condition. The patient tolerated procedure well and there are no complications. Daquan Connell, my physician news production assistant, was present for the entire procedure. His assistance was required for proper patient positioning, prepping and draping, surgical exposure, retraction, perform the technical details of the operation, placement of the implants, closure of the incision site, and placement of postoperative sterile bandage. I attest to the content of the Intraoperative Record and any orders documented therein. Any exceptions are noted below.
[2024-09-27] MEDS: ONDANSETRON INJ 2 MG/ML 2 ML VIAL IV PRN (11:33)
[2024-09-27] MEDS: ONDANSETRON INJ 2 MG/ML 2 ML VIAL ONE (11:43)
--- NOTE | 2024-09-27 12:06 | XRay Report ---
XR knee LT 1 or 2V routine HISTORY: 59 years-old Female Surgical Post Op left knee arthroplasty COMPARISON: Knee radiographs 09/05/2024 TECHNIQUE: 2 views of the left knee FINDINGS: Satisfactory alignment of the total joint arthroplasty with patellar resurfacing. Anterior midline sk in morgan are noted along with expected postoperative soft tissue swelling with deep tissue air. IMPRESSION: Satisfactory alignment of the left knee total joint arthroplasty. ACT 112: Negative or not required by law. The above report was generated using voice recognition software. It may contain grammatical, syntax o r spelling errors. Electronically signed by: Momo Castro M.D. 09/27/2024 12:04 PM
--- NOTE | 2024-09-27 12:33 | Anesthesiology Progress Note ---
Date of Service September 27, 2024 Anesthesia Post Procedure Vital Signs Vital Signs: Temp Pulse Pulse Resp BP Pulse Ox O2 Del Method 09/27/24 12:15 60 18 120/69 95 Room Air 09/27/24 12:05 36.4 C L 76 22 129/80 95 Room Air 09/27/24 11:55 82 18 145/78 H 97 Room Air 09/27/24 11:45 79 19 140/75 96 Room Air 09/27/24 11:35 82 21 127/75 95 Room Air 09/27/24 11:26 36.0 C L 105 H 26 H 147/88 H 96 Room Air 09/27/24 06:52 54 L 20 160/74 H 99 Room Air Pain Intensity Left Knee: Pain Intensity: 3 Transfer of Care Handoff Completed per policy Notes Mental Status: alert / awake / arousable Patient Amnestic to Procedure: Yes Nausea / Vomiting: adequately controlled Pain: adequately controlled Airway Patency, RR, SpO2: stable & adequate BP & HR: stable & adequate Hydration State: stable & adequate Neuraxial Anesthesia: was administered and sensory block is resolving Anesthetic Complications: no major complications apparent
[2024-09-27] MEDS ORDERED: ONDANSETRON 4 MG OD TAB PO PRN (12:39)
[2024-09-27] MEDS: FAMOTIDINE 10 MG TABLET PO ONE (12:46)
[2024-09-27] MEDS ORDERED: MEDICAL MARIJUANA INH PRN (12:48)
[2024-09-27] MEDS: KETOROLAC 30 MG/ML VIAL IV SCH (13:03)
[2024-09-27] MEDS: SODIUM CHLORIDE 0.9% 1,000 ML IV SCH (13:03)
[2024-09-27] MEDS ORDERED: ACETAMINOPHEN 500 MG TAB PO SCH (14:00)
[2024-09-27] MEDS: TRANEXAMIC ACID / 0.7% NACL 1,000 MG/100 ML BAG IV SCH (17:32)
[2024-09-27] MEDS: ASCORBIC ACID 500 MG TAB PO SCH (17:42)
[2024-09-27] MEDS: DOCUSATE SODIUM 100 MG CAP PO SCH (20:21)
[2024-09-27] MEDS: SENNA 8.6 MG TAB PO SCH (20:21)
[2024-09-27] MEDS ORDERED: SENNA 8.6 MG TAB PO SCH (21:00)
[2024-09-28 07:26] LABS: Hematocrit (blood only) 37.4 % (37.0-47.0); Hemoglobin 12.4 g/dl (12.0-16.0); Mean Corpuscular Hemoglobin 29.1 pg (25.0-34.0); Mean Corpuscular Volume 87.8 fL (80.0-100.0); Platelet Count 225 K/uL (130-400); RDW Standard Deviation 43.4 fL (36.4-46.3); Red Blood Count 4.26 M/uL (4.20-5.40); White Blood Count 12.09 K/ul (4.8-10.8)
[2024-09-28 07:43] LABS: Anion Gap 6.0 (3-11); Blood Urea Nitrogen 14.0 mg/dl (6-23); Calcium 8.8 mg/dl (8.6-10.3); Carbon Dioxide 26.0 mmol/L (21-32); Chloride 109.0 mmol/L (98-107); Creatinine Clr Calc Pharmacy 82.1 ml/min; Glucose 93.0 mg/dl (70-99(Fasting)); Potassium 4.3 mmol/L (3.5-5.1); Sodium 141.0 mmol/L (136-145)
[2024-09-28 08:09] VITALS: BP 128/79; PULSE 65; RESP 18; TEMP 97.9; O2SAT 99
[2024-09-28] MEDS ORDERED: MULTIVITAMIN TAB PO SCH (09:00)
--- NOTE | 2024-09-28 09:01 | Orthopedic Progress Note ---
Date of Service September 28, 2024 Assessment & Plan (1) Status post total left knee replacement: * Continue Current Treatment * Disposition: home * Daily treatment: Physical Therapy/ Occupational Therapy per protocol * Weight bearing status: WBAT * Continue to monitor for ABLA * Pain control * DVT prophylaxis, ASA * Office/hospital f/u 2 weeks for progress check and staple/suture removal * Plan for discharge today pending PT/OT clearance Subjective . Active Problems: S/p left TKA POD 1 59 y/o female s/p left TKA. Doing well overall, pain managed and improved function. Denies fever/chills, chest pain/SOB, nausea/vomiting. Otherwise no complaints. Review of Systems All systems reviewed & are unremarkable except as noted in HPI & below. Physical Exam . * General: Alert and oriented, no acute distress * Constitutional: well-developed, well-nourished. * Respiratory: Normal respiratory effort, no distress * Gastrointestinal: No tenderness to palpation, no rigidity or guarding. * Skin: No rash or lesion. * Neurologic: Grossly normal * Musculoskeletal: left knee surgical dressing CDI, not removed for exam. Otherwise no obvious deformity or overlying skin changes RLE. Diffuse TTP distal thigh and knee region. Otherwise no specific tenderness of proximal thigh, lower leg, foot/ankle. AROM knee flexion 100 degrees. AROM foot/ankle intact. Sensation intact plantar/dorsal foot. Brisk capillary refill. Results & Data Results & Data Laboratory Results . Diagnostic Findings . Knee X-Ray 09/27/24 11:33 XR knee LT 1 or 2V routine HISTORY: 59 years-old Female Surgical Post Op left knee arthroplasty COMPARISON: Knee radiographs 09/05/2024 TECHNIQUE: 2 views of the left knee FINDINGS: Satisfactory alignment of the total joint arthroplasty with patellar resurfa cing. Anterior midline skin morgan are noted along with expected postoperative soft tissue swelling with deep tissue air. IMPRESSION: Satisfactory alignment of the left knee total joint arthroplasty. ACT 112: Negative or not required by law. The above report was generated using voice recognition software. It may contain grammatical, syntax or spelling errors. Electronically signed by: Momo Castro M.D. 09/27/2024 12:04 PM PG Care Time/CCT Total # of Minutes Spent Total Time Spent with Patient: Total time spent is greater than 50% in coordination of care (as documented) at patient's floor/unit and/or counseling patient: Coding Level of Care Code 80258 Post Operative Follow-Up Diagnoses Status post total left knee replacement Z96.652
[2024-09-28] MEDS: dexAMETHasone 10 MG in SYRINGE 0 ML IV SCH (09:28)
[2024-09-28] MEDS: MULTIVITAMIN TAB PO SCH (09:29)
[2024-09-28] MEDS: CALCIUM POLYCARBOPHIL 625MG TAB PO SCH (09:29)
[2024-09-28] MEDS: CHOLECALCIFEROL 25 MCG (1000 UNITS) TAB PO SCH (09:29)
[2024-09-28] MEDS ORDERED: RIVAROXABAN 10 MG TABLET PO SCH (12:00)
== END 2024-09-28 11:58 | disposition home health service (06) ==
LOC: ASU 06:38 → 3E 06:38